=== PATIENT | female | born 1955 | race Caucasian/White ===

== ENCOUNTER 2018-05-19 14:51 | Inpatient (IN) | payer OTHER ==
[~2018-05-19] VITALS: Ht 165.1 cm; Wt 74.7 kg
--- NOTE | ~2018-05-19 | EKG ---
[place] [address] [facility] [place] [address] ELECTROCARDIOGRAM REPORT Name: DARÍO CABAN Room #: 170-5 ADM IN M.R.#: [id number] Admission: 05/19/18 Attend Phys: Ayanna Brunson Discharge: Date of : 57 Report #: [id number] THIS REPORT FOR: //name// [facility] ED Test Date: 2018-05-19 Test Time: 15:49:49 Pat Name: DARÍO CBAAN Department: Room: Gender: F Cyber Security Consultant: MRAY KAY : 1955 Requested By: Cecy Clarke Order Number: [id number] MD: Rosalino Allen Measurements Intervals [place] Rate: 74 P: 64 LA: 152 QRS: 59 QRSD: 91 T: 57 QT: 399 QTc: 443 Interpretive Statements Sinus rhythm No significant abnormality No previous ECG available for comparison Electronically Signed On 05-19-2018 17:10:35 CDT by Rosalino Allen [email or web address] <ELECTRONICALLY SIGNED> By: Rosalino Allen MD, [facility] 05/19/18 1710 1549 1549 Rosalino Allen MD, FACC /EPI
--- NOTE | ~2018-05-19 | O ---
[address] [address] OPERATIVE REPORT Name: DARÍO CABAN Room #: 421-P ADM IN M.R.#: [id number] Admission: 05/19/18 Attend Phys: Ayanna Brunson Discharge: Date of : 57 Report #: [id number] THIS REPORT FOR: //name// CC: Jose Gamanne Karli DATE OF SERVICE: 05/19/2018 SERVICE: Orthopedics. FACILITY: [facility]. SURGEON: Cesar Meza MD CENTER CUSTOMER SERVICE ASSOCIATE: Kay Rogers NP INDICATION: Leg manipulation and assistance with the implantation and reduction of the hip fracture. PREOPERATIVE DIAGNOSIS: Displaced right femoral neck fracture. POSTOPERATIVE DIAGNOSES: 1. Displaced right femoral neck fracture 2. Right greater trochanteric hip fracture. PROCEDURE: 1. Right hip hemiarthroplasty. 2. Open reduction and internal fixation of right hip greater trochanter fracture. ANESTHESIA: General. COMPLICATIONS: None. DRAINS: None. SPECIMENS: Femoral head, which was discarded. ESTIMATED BLOOD LOSS: 200 mL. FINDINGS: Displaced femoral neck fracture, treated with [employer] Synergy size 11 stem with 46 mm +0 neck with standard offset stem. HISTORY: The patient is a 63-year-old female with multiple medical problems, who sustained a fall while transferring, landing on her right side. She has a history of previous cerebrovascular accident in 2017 which left her hemiparetic [address] [address] OPERATIVE REPORT Name: DARÍO CABAN Room #: 421-P ADM IN .R.#: [id number] Admission: 05/19/18 Attend Phys: Ayanna Brunson Discharge: Date of : 57 Report #: [id number] on the right side. She is therefore a non-ambulator and primarily transfers only. She had a complex proximal femur fracture involving the femoral neck, which was displaced and therefore, she is indicated for a hemiarthroplasty. X-rays demonstrated atypical fracture pattern, which was later confirmed intraoperatively to be a coronal fracture within the femoral neck with an extension into the greater trochanter. There was subcapital component to it as well such that intertrochanteric fracture treatment would not have been appropriate. She is indicated for surgery after she was admitted to hospital. Risks, benefits, alternatives, and indications for surgery were discussed in great detail with her who is the durable power of family law attorney and his questions were answered. He understood that there was significant risk of mortality or morbidity and gave full informed consent. Risks include but not limited to pain, bleeding, infection, injury to nerves or blood vessels, need for further surgery and stability of the prosthesis, periprosthetic fracture and complications related to anesthesia including . PROCEDURE IN DETAIL: After right lower extremity was correctly identified as the operative extremity, the patient was taken to the operating room where general endotracheal anesthesia was induced without complication. She was turned into lateral decubitus position with right side up, left side down. Prophylactic antibiotics were administered. Right leg was prepped and draped in standard sterile fashion. Time-out procedure was performed. Standard posterior approach was made to the right hip. Dissection was taken down through the fascia and the gluteus splitting approach to the bursa was removed. The piriformis was identified and was tagged and reflected. The capsule was incised and then reflected and preserved for later repair. The fracture was evaluated. The posterior aspect of the femoral neck was still attached to the femoral head whereas the anterior aspect of the femoral neck was attached to the calcar and the proximal femur and fracture was subcapital in this position. The saw was used to cut the neck, posterior cortex and then the head was removed. There was comminution of the posterior femur proximally as well which again extended into the trochanter and there was good soft tissue envelope around the trochanter, but there was a fracture nonetheless. The residual femoral neck was then excised allowing access to the proximal femur. The proximal femur was then prepared and sequentially reamed and broached to a size 11 trial. A cross-table intraoperative x-ray was then taken to confirm that. The implant was in good position and the length was appropriate. I then trialed the 46 mm head with +0 liner with a standard offset neck and the hip was stable in all positions. The leg length appeared appropriate. I did trial a high offset neck just to assess the soft tissue tensioning since she is a non-ambulator and has had significant atrophy of her right lower extremity muscle but this put her under excessive tension and therefore I retrialed with the standard offset stem and this was most appropriate depth. The trial was [address] [address] OPERATIVE REPORT Name: DUYENLINDADARÍO Room #: 421-P [facility] IN M.R.#: [id number] Admission: 05/19/18 Attend Phys: Ayanna Brunson Discharge: Date of : 57 Report #: [id number] then removed and the proximal femur was repaired in a typical fashion and then the cement restrictor was placed. The proximal femur was dried and final implant was cemented into plate and the cement was allowed to cure with the appropriate version. The excess cement was removed. After the cement had cured, the trial head was placed again and confirmed a 46 mm head with a +0 liner. I then cleaned the trunnion and placed the final implant. The hip was reduced. It was found to be stable in the position of sleep at the 90/90 position and extension external rotation. The leg lengths were appropriate. The shuck test was negative. At this point, the deep layer was thoroughly irrigated and a gram of vancomycin powder was placed around the implant and then I assessed the greater trochanter. The soft tissue envelope with intact and with her significant medical comorbidities, I did not want to perform additional invasive soft tissue stripping and blood loss and exposure to an extended duration procedure and I felt that cerclage treatment of the greater trochanter would be sufficient. Therefore, utilizing a #1 Ethibond and #5 FiberWire, the smaller posterior segment with cerclage to the stable anterior portion providing good fixation, incorporating the repair into the capsular closure as well for the trochanter with 1 unit. Total of 2 sutures were used to repair the capsule for the trochanter fixation with cerclage treatment and additional #5 FiberWire was used with Fulton stitch through the capsule and the abductor to repair the piriformis. Deep fascia was closed with 0 Vicryl sutures and the wound was irrigated. The skin was closed with 2-0 Vicryl and skin medina. Sterile dressing applied. The patient was awakened from anesthesia and taken to recovery room in stable condition with an abduction pillow brace. There were no complications and all counts were recorded as correct. <ELECTRONICALLY SIGNED> By: Cesar Meza MD 05/21/18 1244 1755 1917 Cesar Meza MD /domenico
--- NOTE | ~2018-05-19 | HC ---
[facility] [place] [address] CONSULTATION Name: DARÍO CABAN Room #: 461-P [facility] IN M.R.#: [id number] Admission: 05/19/18 Attend Phys: Ayanna Brunson Discharge: 06/02/18 Date of : 57 Report #: [id number] THIS REPORT FOR: //name// CC: Jose Rothe Karli REASON FOR CONSULTATION: Right hip fracture. HISTORY OF PRESENT ILLNESS: The patient is a 63-year-old female who was transferring herself today due to her right-sided hemiparesis and fell. She and her family report having a stroke approximately 5 years ago, which resulted in hemiparesis on her right side. She had a second stroke in 01/2018, which they report resulted in lung dysfunction. She is currently a patient at [facility]. She is on approximately 5-6 liters of oxygen per nasal cannula. REVIEW OF SYSTEMS: MUSCULOSKELETAL: She complains only of right-sided hip pain. NEUROLOGIC: Denies new changes in her right lower extremity. She reports numbness and loss of use of her right upper and right lower extremities after stroke. PAST MEDICAL HISTORY: Significant for CVA, seizure disorder, alcoholic cirrhosis, alcoholic hepatic encephalopathy, COPD, apparently orthostatic hypotension. ALLERGIES: SHE REPORTS ACETAMINOPHEN. SOCIAL HISTORY: She is , but does not live at home due to her recent stroke. Quit smoking cigarettes a year ago. Alcohol use is none currently. Has a history of alcoholism. PAST SURGICAL HISTORY: Unknown. LABORATORY STUDIES: White blood cell count 7.9, hemoglobin 14.8, hematocrit 41.5, platelet count 104. INR is 1.1. Chemistry shows a low sodium at 133, creatinine is elevated at 1.2. Total bilirubin is elevated at 2. PHYSICAL EXAMINATION: GENERAL: The patient is awake, alert. She converses well. She otherwise interacts appropriately. Her arrives at her bedside midway through my examination. MUSCULOSKELETAL: Examination of her right upper extremity: She has contracted fingers into her palm. I am able to open them; however, not fully. She has no absent sensation to the tips of her fingers. She does not have any significant muscle atrophy. She is nontender to palpation throughout her entire right upper extremity. Right lower extremity exam: There is no atrophy. She has brisk capillary refill in both the right and left upper extremities. The skin is [address] [address] CONSULTATION Name: DARÍO CABAN Room #: 461-P [facility] IN M.R.#: [id number] Admission: 05/19/18 Attend Phys: Ayanna Brunson Discharge: 06/02/18 Date of : 57 Report #: [id number] clean, dry and intact in both right upper and right lower extremities. She does not have any tenderness to palpation throughout the right thigh, knee, leg, ankle or foot. There is a significant pain with attempted range of motion of her right hip. No pain with range of motion of her right knee, ankle or foot. Examination of the left lower extremity: Sensation is intact to light touch throughout. She has brisk capillary refill. EHL, FHL, dorsiflexion and plantar flexion are intact. RADIOGRAPHS: AP pelvis and AP and lateral of the right hip show displaced right femoral neck fracture. IMPRESSION AND PLAN: Right displaced femoral neck fracture in a fairly ill patient with right hemiparesis. She does transfer. I discussed the diagnosis as well as treatment options and in order to allow her fracture to heal and for transferring, recommend surgical fixation most likely with a hemiarthroplasty. I have discussed this patient with my partner, Dr. Cesar Meza, and pending medical clearance. We will plan for surgery tomorrow. Questions were encouraged and answered to best of my ability. Dr. Meza will also discuss the procedure with the patient tomorrow. I did not discuss a definitive treatment with this patient in great detail as I wanted to speak with Dr. Meza first. <ELECTRONICALLY SIGNED> By: Svitlana Eisenberg MD 07/10/18 1054 1717 1827 Svitlana Eisenberg MD /nt
--- NOTE | ~2018-05-19 | 2DMMODE ---
[facility] [address] [place] [address] 2 D/M-MODE ECHOCARDIOGRAM Name: DARÍO CABAN Room #: 349-I ADM IN [facility].#: [id number] Admission: 05/19/18 Attend Phys: Jose Layton Discharge: Date of : 57 Date of Service: 05/22/18 1013 Report #: [id number] THIS REPORT FOR: //name// APPROVED REPORT Study performed: 05/22/2018 08:06:09 EXAM: Comprehensive 2D, Doppler, and color-flow Echocardiogram Patient Location: In-Patient Room #: 349 Status: routine BSA: 1.75 HR: 118 bpm BP: 133/51 mmHg Other Information Study Quality: Technically Limited Technically limited study due to inability to position patient due to broken hip, high heart rate. Indications COPD Hx CVA 2D Dimensions RVDd: 29.68 mm LVEF(%): 68.89 (>50%) IVSd: 9.84 (7-11mm) LVOT Diam: 20.31 (18-24mm) LVDd: 40.96 mm PWd: 10.36 (7-11mm) Ascending Ao: 28.83 (22-36mm) LVDs: 25.32 (25-40mm) Aortic Root: 27.68 mm IVC: 11.00 mm Bahena's LVEF: 68.89 % Volumes Left Atrial Volume (Systole) Single Plane 4CH: 52.68 mL Single Plane 2CH: 45.02 mL LA ESV Index: 31.00 mL/m2 Aortic Valve AoV Peak Erik.: 1.73 m/s AO Peak Gr.: 12.04 mmHg LVOT Max P.85 mmHg LVOT Max V: 1.31 m/s REED Vmax: 2.44 cm2 Mitral Valve [facility] [place] [address] 2 D/M-MODE ECHOCARDIOGRAM Name: DARÍO CABAN Room #: 349-I ADM IN M.R.#: [id number] Admission: 05/19/18 Attend Phys: Jose Layton Discharge: Date of : 57 Date of Service: 05/22/18 1013 Report #: [id number] E/A Ratio: 0.9 MV Decel. Time: 190.10 ms MV E Max Erik.: 0.69 m/s MV A Erik.: 0.77 m/s MV PHT: 55.13 ms IVRT: 62.28 ms Pulmonary Valve PV Peak Erik.: 1.46 m/s PV Peak Gr.: 8.50 mmHg Tricuspid Valve RAP Estimate: 5.00 mmHg Left Ventricle The left ventricle is normal size. There is normal left ventricular wall thickness. The left ventricular systolic function is normal. The left ventricular ejection fraction is within the normal range. LVEF is 65%. This study is not technically sufficient to allow evaluation of the LV diastolic function. Right Ventricle The right ventricle is normal size. The right ventricular systolic function is normal. Atria The left atrium size is normal. The right atrium size is normal. Aortic Valve The aortic valve is normal in structure. No aortic regurgitation is present. There is no aortic valvular stenosis. Mitral Valve The mitral valve is normal in structure. Trace mitral regurgitation. No evidence of mitral valve stenosis. Tricuspid Valve The tricuspid valve is normal in structure. There is no tricuspid valve regurgitation noted. Unable to assess PA pressure. Pulmonic Valve Pulmonic valve is not well visualized. Great Vessels The aortic root is normal in size. IVC is normal in size and collapses >50% with inspiration. [address] [address] 2 D/M-MODE ECHOCARDIOGRAM Name: DARÍO CABAN Room #: 349-I ADM IN .R.#: [id number] Admission: 05/19/18 Attend Phys: Jose Layton Discharge: Date of : 57 Date of Service: 05/22/18 1013 Report #: [id number] Pericardium There is no pericardial effusion. <Conclusion> The left ventricle is normal size. There is normal left ventricular wall thickness. The left ventricular systolic function is normal. The right ventricle is normal size. The left atrium size is normal. The right atrium size is normal. The aortic valve is normal in structure. Trace mitral regurgitation. There is no tricuspid valve regurgitation noted. Unable to assess PA pressure. <ELECTRONICALLY SIGNED> By: Larry Flores MD 05/22/18 1013 1013 1013 Larry Flores MD /INF
--- NOTE | ~2018-05-19 | D ---
[facility] [place] [address] DISCHARGE SUMMARY Name: DARÍO CABAN Room #: 461-P [facility] IN M.R.#: [id number] Admission: 05/19/18 Attend Phys: Ayanna Brunson Discharge: 06/02/18 Date of : 57 Report #: [id number] THIS REPORT FOR: //name// CC: Jose Calvillo FINAL DIAGNOSES: 1. Right hip fracture. 2. Hepatic encephalopathy. 3. Acute hypoxic respiratory failure. 4. Fever. 5. Aspiration pneumonia. 6. Hypernatremia. 7. Hypokalemia. 8. Cerebrovascular disease. 9. Chronic right hemiparesis. 10. Dysphagia. 11. Anemia of chronic disease. 12. Hyperglycemia. 13. Severe protein-calorie malnutrition. 14. Medication-induced diarrhea. PROCEDURES: Right hip fracture repair. HOSPITAL COURSE: The patient was admitted from her long-term care unit with a right hip fracture. She underwent surgical repair. Postoperatively, she had complications including fever, hypoxic respiratory failure, aspiration pneumonia, hypokalemia, hypernatremia and hepatic encephalopathy. Multiple consultants followed her case and she was treated briefly in the ICU and then medically stabilized. Hyperglycemia developed after the use of steroids for her COPD. Gradually, her respiratory status improved and she was transferred out to the floor. She required additional free water supplementation for hypernatremia, potassium supplement due to diarrhea from lactulose and adjustment of her tube feeding to a diabetic agent and discontinuation of steroids. She had a bleeding episode after receiving Xarelto for DVT prophylaxis, and therefore, that was discontinued. PHYSICAL EXAMINATION: GENERAL: On the day of discharge, she was awake and alert, resting in bed, in no distress. VITAL SIGNS: Temperature 36.4, pulse 90, respirations 16, blood pressure 95/58 and O2 sat 100% on 2-3 liters nasal cannula. LUNGS: Clear. HEART: Regular. ABDOMEN: Soft, normoactive bowel sounds. EXTREMITIES: No edema. [facility] [address] [place] [address] DISCHARGE SUMMARY Name: DARÍO CABAN Room #: [address] [place] [address] IN .R.#: [id number] Admission: 05/19/18 Attend Phys: Ayanna Brunson Discharge: 06/02/18 Date of : 57 Report #: [id number] LABORATORY DATA: Hemoglobin was 11, white count was 10. Glucose 199, potassium 5.2 and creatinine 0.8. DISPOSITION: She will be transferred to [facility] under the care of Dr. Villa. I have signed her discharge medications orders. She will have speech, physical and occupational therapy. She had an oral diet previously and once cleared by speech, this may resume. <ELECTRONICALLY SIGNED> By: Frankie Silva MD 06/04/18 1159 1059 1124 Frankie Silva MD /nt
--- NOTE | ~2018-05-19 | H ---
[facility] [place] [address] HISTORY AND PHYSICAL Name: DARÍO CABAN Room #: 421-P ADM IN M.R.#: [id number] Admission: 05/19/18 Attend Phys: Ayanna Brunson Discharge: Date of : 57 Report #: [id number] THIS REPORT FOR: //name// CC: Jose Gamanne Karli DATE OF SERVICE: 05/19/2018 CHIEF COMPLAINT: Right hip pain. HISTORY OF PRESENT ILLNESS: The patient is a 63-year-old female, transferred from [facility] to the ER due to hip pain. She suffered a stroke in 02/2017, has chronic right hemiparesis. According to the reports, it sounds like she was trying to transfer when she slipped and landed on to the right side. She complained of pain and was unable to stand. X-rays have confirmed a right hip fracture. PAST MEDICAL HISTORY: CVA 02/2017. Chronic dysphagia with PEG tube, chronic right hemiparesis, seizure disorder, alcoholic cirrhosis with a history of hepatic encephalopathy, COPD, orthostatic hypotension. PAST SURGICAL HISTORY: PEG tube. FAMILY HISTORY: Noncontributory. SOCIAL HISTORY: No current alcohol or tobacco use, but there is prior use of both. ALLERGIES: None. MEDICATIONS: Rifaximin, midodrine, Aldactone, Keppra, lactulose, Lasix, budesonide inhaled solution, Pepcid and potassium. REVIEW OF SYSTEMS: She denies any headache, chest pain, shortness of breath, abdominal pain, nausea, vomiting, diarrhea, constipation, dysuria, syncope. OBJECTIVE: VITAL SIGNS: Temperature 36.9, pulse 99, respirations 12. Blood pressure 91/54, ranging 102/43. O2 sat 93% on 2 liters. GENERAL: She is awake and alert, lying in bed, in no distress. HEAD AND NECK: Unremarkable. LUNGS: Clear. HEART: Regular. ABDOMEN: Soft, normoactive bowel sounds. EXTREMITIES: No edema. NEUROLOGIC: Speech is relatively clear. She has right hemiparesis. Left-sided [facility] [address] [place] [address] HISTORY AND PHYSICAL Name: DARÍO CABAN Room #: 421-P [facility] IN ..#: [id number] Admission: 05/19/18 Attend Phys: Ayanna Brunson Discharge: Date of : 57 Report #: [id number] strength about 01/06. LABORATORY DATA: Reviewed. Urine culture is pending. ASSESSMENT: 1. Right proximal femur fracture. 2. Urinary tract infection. 3. Cerebrovascular disease. 4. Chronic right hemiparesis from old stroke. 5. Chronic dysphagia with PEG tube. 6. Seizure disorder. 7. Chronic obstructive pulmonary disease. 8. 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 9. Hepatic encephalopathy. PLAN: Continue medications and transfer. She is medically cleared to proceed with surgical stabilization of her hip today. I will add Diflucan, waiting on the urine culture. <ELECTRONICALLY SIGNED> By: Frankie Silva MD 05/20/18 1214 0911 0942 Frankie Silva MD /nt
--- NOTE | ~2018-05-19 | HC ---
[facility] [place] [address] CONSULTATION Name: DARÍO CABAN Room #: 247-P ADM IN M.R.#: [id number] Admission: 05/19/18 Attend Phys: Ayanna Brunson Discharge: Date of : 57 Report #: [id number] THIS REPORT FOR: //name// CC: Jose Gamanne Karli DATE OF SERVICE: 05/22/2018 REASON FOR CONSULTATION: Evaluation concerning sepsis. HISTORY OF PRESENT ILLNESS: The patient is a 63-year-old with underlying history of stroke with right hemiparesis in the setting of cirrhosis and seizure disorder. She was residing at [facility] when she slipped during a transfer and fractured her right femoral neck and greater trochanter. On 05/19/2018, the day of admission, she underwent ORIF of the hip. Postoperatively, she was hypoxic. She does have an underlying history of COPD. Her hypoxia persisted up to 8 liters of oxygen per nasal cannula. She has remained encephalopathic. She was seen in consultation by pulmonary medicine yesterday evening. With a normal chest x-ray, CT was ordered with no evidence of pulmonary embolism. No other intrathoracic changes noted on the imaging studies, which were reviewed. This morning, she spiked temperature up to 102 degrees. She has become hypotensive with blood pressure systolic in the 80s. She has had decreased urine output. She remains on 4 liters of oxygen per nasal cannula. She was unable to give me any history. Nursing notes no significant change in her mental status. No documented seizure. No gross aspiration noted. No nausea, vomiting or diarrhea. She has remained on lactulose and rifaximin. Stools have been loose while on this program, which is unchanged. She has had no increased output from her right hip incisional VAC. She has had no recent narcotic use. No report of abdominal pain, although the patient was unable to give details. She does have a PEG tube for her feedings. REVIEW OF SYSTEMS: The patient was unable to give any details. A 10-point review was discussed with nursing staff at the bedside. No other issues were noted. She does have a left external jugular IV in place. She had bleeding from her right dorsal hand. She has indwelling Tubbs catheter. There has been no rectal bleeding noted. ALLERGIES: None known. MEDICATIONS: As noted on her MAR including fluconazole and ceftriaxone given up until today where it was changed to vancomycin and Zosyn. PAST MEDICAL HISTORY: COPD, stroke with right hemiparesis in February 2018, cirrhosis, seizure disorder, and [place] [address] CONSULTATION Name: DARÍO CABAN Room #: [facility] IN M.R.#: [id number] Admission: 05/19/18 Attend Phys: Ayanna Brunson Discharge: Date of : 57 Report #: [id number] FAMILY HISTORY: Unavailable due to the patient's neurologic status. SOCIAL HISTORY: She is a past smoker, previous alcohol use. No other details available. PHYSICAL EXAMINATION: VITAL SIGNS: Temperature is 102 degrees, pulse is 105, respiratory rate in the 20s, and blood pressure was 89/41. GENERAL: The patient was arousable, but noncommunicative, otherwise. She appeared a bit anxious. EYES: Unremarkable. MOUTH: No thrush or oral lesions. NECK: Supple. LUNGS: Clear anteriorly and posteriorly with no consolidation. No rub. CARDIOVASCULAR: Heart was tachycardic, regular. No appreciable murmur, gallop, or rub. ABDOMEN: Firm with unremarkable PEG tube in the left upper quadrant. She had a midline abdominal incision with scarring. No palpable mass or hepatosplenomegaly identified. Did not appear to have ascites. GENITOURINARY: External genitalia unremarkable with indwelling Tubbs catheter. Perianal examination unremarkable with no bleeding. EXTREMITIES: Right hip incision with incisional VAC in place. She did have surrounding ecchymosis. Extremities otherwise unremarkable. NEUROLOGIC: Noted right hemiparesis. LABORATORY STUDIES: Initial urinalysis had many wbc's, bacteria. Urine culture is pending from the . Repeat urinalysis today was unremarkable. Hemoglobin 10, down to 9.5 this morning; WBC 8.8, platelet count is 84,000. Sodium 137, potassium 3.7, creatinine 1.2. AST 40, ALT 30, alkaline phosphatase 122, bilirubin 1.2, albumin at 2.4, lactate 1.7, ammonia of 57. On 4 liters of oxygen per nasal cannula, she had a pO2 of 38, pCO2 of 21, pH 7.5, bicarb of 18, question whether this was a venous stick. Blood cultures are pending. CT scan of the chest was unremarkable. Ultrasound of lower extremity negative for DVT. Chest x-ray clear. IMPRESSION: A 63-year-old with previous stroke, underlying cirrhosis, chronic obstructive pulmonary disease and seizure disorder with recent right hip fracture, now postoperative day #3 from open reduction and internal fixation. Now with postoperative fever and sepsis with shock. Source of infection is not yet clear. We would consider urinary tract, although repeat urinalysis was unremarkable. Surgical site is other consideration. Intra-abdominal source with colitis or spontaneous bacterial peritonitis also possible. She does not appear to have pulmonary embolus or pneumonia. Doubt central nervous system infection. She has peripheral IVs in place, making bloodstream infection less likely. The patient has been hospitalized or institutionalized for several [facility] [address] [place] [address] CONSULTATION Name: DARÍO CABAN Room #: 247-P ADM IN M.R.#: [id number] Admission: 05/19/18 Attend Phys: Ayanna Brunson Discharge: Date of : 57 Report #: [id number] months, making healthcare-associated organisms a concern. RECOMMENDATION: Transfer to the ICU for full sepsis workup and support. Give IV fluid bolus now, place central venous access, continue fluids and vasopressors as needed to maintain adequate perfusion. Continue with broad antibiotic coverage including vancomycin and Zosyn. Obtain cultures of blood and urine. CT imaging of her abdomen and pelvis. We will discuss further with pulmonary medicine. Repeat ABG. <ELECTRONICALLY SIGNED> By: Rickey Villa MD 05/23/18 [id number] Rickey Villa MD /nt
[2018-05-19 14:52] VITALS: BP 107/62
[2018-05-19 16:01] LABS: HEMATOCRIT 41.5 % (37.0-47.0); HEMOGLOBIN 14.8 gm/dL (12.0-15.0); MCH 35.6 pg (26.0-34.0); MCHC 35.6 g/dL (28.0-37.0); MCV 100.1 fL (80.0-100.0); PLATELET COUNT 104 thou/uL (150-400); RBC 4.15 mil/uL (4.20-5.00); RDW 14.6 % (10.5-14.5); WBC 7.9 thou/uL (4.0-11.0)
[2018-05-19 16:09] LABS: CALCIUM 9.7 mg/dL (8.5-10.1); CREATININE 1.2 mg/dL (0.6-1.0); POTASSIUM 4.1 mmol/L (3.5-5.1)
[2018-05-19 16:13] LABS: INR 1.1; PROTIME 11.2 Seconds (9.3-11.4)
[2018-05-19 16:20] LABS: ALBUMIN 3.6 g/dL (3.4-5.0); DIRECT BILIRUBIN 0.6 mg/dL (<0.1-0.3); TOTAL PROTEIN 8.2 g/dL (6.4-8.2)
[2018-05-19 16:26] LABS: ABSOLUTE NEUTROPHILS 5.9 thou/uL (1.4-8.2)
[2018-05-19 17:14] LABS: URINE BILIRUBIN NEGATIVE (Negative); URINE BLOOD NEGATIVE (Negative); URINE CLARITY CLEAR; URINE COLOR YELLOW; URINE GLUCOSE-RANDOM* NEGATIVE (Negative); URINE KETONES NEGATIVE (Negative); URINE LEUKOCYTES 1+ (Negative); URINE NITRITE POSITIVE (Negative); URINE PROTEIN (DIPSTICK) NEGATIVE (Negative); URINE UROBILINOGEN 0.2 E.U./dl (0.2-1.0)
[2018-05-19 17:22] LABS: CASTS None Seen /LPF (None Seen); SQUAMOUS 0-3 Few /LPF (0-3); URINE WBC >25 Many /HPF (0-5)
[2018-05-19 17:23] LABS: BACTERIA >30 Many /HPF (None Seen); CRYSTALS None Seen /LPF (None Seen); URINE RBC None Seen /HPF (0-2); WBC CLUMPS Few (None Seen); YEAST Present (None Seen)
[2018-05-19 17:28] VITALS: BP 102/61
[2018-05-19 18:33] VITALS: BP 101/64
[2018-05-19 18:49] VITALS: BP 115/60
[2018-05-19 19:30] VITALS: BP 99/48
[2018-05-20] VITALS (13 sets, daily range): BP systolic 82–104; BP diastolic 43–57
[2018-05-20] MEDS ORDERED: ALDACTONE50 MG PO (02:44)
[2018-05-20] MEDS ORDERED: POTASSIUM20 PO (02:44)
[2018-05-20] MEDS ORDERED: PULMICORT0.5 MG/22 INH (02:45)
[2018-05-20] MEDS ORDERED: PEPCID20 MG PO (02:47)
[2018-05-20] MEDS ORDERED: LASIX 20 MG TAB20 MG PO (02:47)
[2018-05-20] MEDS ORDERED: KEPPRA 500 MG500 M1 PO (02:48)
[2018-05-20] MEDS ORDERED: XIFAXAN550 M1 PO (02:49)
[2018-05-20] MEDS ORDERED: MIDODRINE HCL 55 M1 PO (02:50)
[2018-05-20] MEDS ORDERED: LACTULOSE10 GM/152 PO (02:51)
[2018-05-20] MEDS ORDERED: IBUPROFEN 600600 M1 PO (02:53)
[2018-05-21] VITALS (7 sets, daily range): BP systolic 91–112; BP diastolic 38–50
[2018-05-21 05:55] LABS: HEMATOCRIT 31.2 % (37.0-47.0); MCH 35.7 pg (26.0-34.0); MCHC 35.6 g/dL (28.0-37.0); MCV 100.5 fL (80.0-100.0); RBC 3.1 mil/uL (4.20-5.00); RDW 14.8 % (10.5-14.5); WBC 7.3 thou/uL (4.0-11.0)
[2018-05-21 06:03] LABS: HEMOGLOBIN 11.1 gm/dL (12.0-15.0)
[2018-05-21 06:08] LABS: CALCIUM 7.9 mg/dL (8.5-10.1); CREATININE 1.1 mg/dL (0.6-1.0); POTASSIUM 3.9 mmol/L (3.5-5.1)
[2018-05-21 12:23] LABS: BE(vivo) -0.8 mmol/L (-2 to +3); HCO3 20.7 mmol/L (22.0-26.0); PCO2 26.1 mmHg (35.0-45.0); PO2 49.1 mmHg (80.0-100.0); pH 7.517 (7.360-7.450); sO2 89.2 % (92.0-98.0)
[2018-05-21 16:12] LABS: BE(vivo) -2.9 mmol/L (-2 to +3); HCO3 17.9 mmol/L (22.0-26.0); pH 7.537 (7.360-7.450); sO2 80.7 % (92.0-98.0)
[2018-05-21 16:13] LABS: PCO2 21.6 mmHg (35.0-45.0); PO2 38.1 mmHg (80.0-100.0)
[2018-05-22] VITALS (16 sets, daily range): BP systolic 80–138; BP diastolic 33–102
[2018-05-22 05:47] LABS: HEMATOCRIT 28.5 % (37.0-47.0); HEMOGLOBIN 10.1 gm/dL (12.0-15.0); MCH 35.7 pg (26.0-34.0); MCHC 35.5 g/dL (28.0-37.0); MCV 100.4 fL (80.0-100.0); RBC 2.84 mil/uL (4.20-5.00); RDW 14.8 % (10.5-14.5); WBC 8.8 thou/uL (4.0-11.0)
[2018-05-22 06:05] LABS: ALBUMIN 2.4 g/dL (3.4-5.0); CREATININE 1.2 mg/dL (0.6-1.0); POTASSIUM 3.7 mmol/L (3.5-5.1); TOTAL BILIRUBIN 1.2 mg/dL (<0.1-1.0); TOTAL PROTEIN 5.8 g/dL (6.4-8.2)
[2018-05-22 09:59] LABS: URINE BILIRUBIN NEGATIVE (Negative); URINE BLOOD NEGATIVE (Negative); URINE CLARITY CLEAR; URINE COLOR YELLOW; URINE GLUCOSE-RANDOM* NEGATIVE (Negative); URINE KETONES NEGATIVE (Negative); URINE LEUKOCYTES-REFLEX NEGATIVE (Negative); URINE NITRITE-REFLEX NEGATIVE (Negative); URINE PROTEIN (DIPSTICK) NEGATIVE (Negative); URINE SPECIFIC GRAVITY 1.025 (1.005-1.035); URINE UROBILINOGEN 0.2 E.U./dl (0.2-1.0)
[2018-05-22 11:42] LABS: HEMATOCRIT 26.9 % (37.0-47.0); HEMOGLOBIN 9.5 gm/dL (12.0-15.0)
[2018-05-22 12:43] LABS: BE(vivo) -1.9 mmol/L (-2 to +3); HCO3 21.3 mmol/L (22.0-26.0); PCO2 30.2 mmHg (35.0-45.0); PO2 68.9 mmHg (80.0-100.0); pH 7.466 (7.360-7.450)
[2018-05-23] VITALS (13 sets, daily range): BP systolic 86–1115; BP diastolic 47–71
[2018-05-23 05:27] LABS: ABSOLUTE NEUTROPHILS 5.1 thou/uL (1.4-8.2); BASOPHILS 0.6 % (0.0-2.0); EOSINOPHILS 4.7 % (0.0-3.0); HEMATOCRIT 24.4 % (37.0-47.0); HEMOGLOBIN 8.6 gm/dL (12.0-15.0); MCH 35.5 pg (26.0-34.0); MCHC 35.1 g/dL (28.0-37.0); MCV 101.1 fL (80.0-100.0); PLATELET COUNT 78 thou/uL (150-400); POLYS 75.7 % (36.0-66.0); RBC 2.41 mil/uL (4.20-5.00); RDW 14.9 % (10.5-14.5); WBC 6.7 thou/uL (4.0-11.0)
[2018-05-23 05:43] LABS: ALBUMIN 2.1 g/dL (3.4-5.0); POTASSIUM 3.3 mmol/L (3.5-5.1); TOTAL BILIRUBIN 1.5 mg/dL (<0.1-1.0); TOTAL PROTEIN 5.1 g/dL (6.4-8.2)
[2018-05-24] VITALS (21 sets, daily range): BP systolic 73–138; BP diastolic 44–70
[2018-05-24 03:08] LABS: HEMATOCRIT 25.4 % (37.0-47.0); HEMOGLOBIN 8.8 gm/dL (12.0-15.0); MCH 35.5 pg (26.0-34.0); MCHC 34.8 g/dL (28.0-37.0); MCV 102.2 fL (80.0-100.0); RBC 2.48 mil/uL (4.20-5.00); RDW 14.7 % (10.5-14.5)
[2018-05-24 03:11] LABS: CALCIUM 8.1 mg/dL (8.5-10.1); CREATININE 1.1 mg/dL (0.6-1.0); POTASSIUM 3.7 mmol/L (3.5-5.1)
[2018-05-24 03:17] LABS: ALBUMIN 2.2 g/dL (3.4-5.0); DIRECT BILIRUBIN 0.6 mg/dL (<0.1-0.3); TOTAL BILIRUBIN 1.4 mg/dL (<0.1-1.0); TOTAL PROTEIN 5.9 g/dL (6.4-8.2)
[2018-05-24 07:07] LABS: BE(vivo) -4.1 mmol/L (-2 to +3); HCO3 19.9 mmol/L (22.0-26.0); PO2 116.1 mmHg (80.0-100.0); pH 7.411 (7.360-7.450); sO2 98.3 % (92.0-98.0)
[2018-05-24 11:29] LABS: CALCIUM 8.3 mg/dL (8.5-10.1); CREATININE 1.1 mg/dL (0.6-1.0); POTASSIUM 3.8 mmol/L (3.5-5.1)
[2018-05-24 11:37] LABS: HEMATOCRIT 24.9 % (37.0-47.0); HEMOGLOBIN 8.8 gm/dL (12.0-15.0); MCH 35.8 pg (26.0-34.0); MCHC 35.3 g/dL (28.0-37.0); MCV 101.3 fL (80.0-100.0); RBC 2.46 mil/uL (4.20-5.00); RDW 14.5 % (10.5-14.5); WBC 7.6 thou/uL (4.0-11.0)
[2018-05-25] VITALS (23 sets, daily range): BP systolic 92–120; BP diastolic 48–65
[2018-05-25 05:04] LABS: CALCIUM 8.2 mg/dL (8.5-10.1); CREATININE 1.1 mg/dL (0.6-1.0); POTASSIUM 3.6 mmol/L (3.5-5.1)
[2018-05-25 05:28] LABS: HEMATOCRIT 23.6 % (37.0-47.0); HEMOGLOBIN 8.3 gm/dL (12.0-15.0); MCH 35.7 pg (26.0-34.0); MCHC 35.2 g/dL (28.0-37.0); MCV 101.3 fL (80.0-100.0); RBC 2.33 mil/uL (4.20-5.00); RDW 14.7 % (10.5-14.5); WBC 7.2 thou/uL (4.0-11.0)
[2018-05-25 12:06] LABS: HEMATOCRIT 23.6 % (37.0-47.0); HEMOGLOBIN 8.3 gm/dL (12.0-15.0); MCH 35.6 pg (26.0-34.0); MCV 101.6 fL (80.0-100.0); RBC 2.33 mil/uL (4.20-5.00); RDW 14.7 % (10.5-14.5); WBC 5.5 thou/uL (4.0-11.0)
[2018-05-25 12:22] LABS: ALBUMIN 2.4 g/dL (3.4-5.0); CALCIUM 8.4 mg/dL (8.5-10.1); CREATININE 1.1 mg/dL (0.6-1.0); POTASSIUM 3.6 mmol/L (3.5-5.1); TOTAL BILIRUBIN 1.2 mg/dL (<0.1-1.0); TOTAL PROTEIN 5.8 g/dL (6.4-8.2)
[2018-05-26] VITALS (24 sets, daily range): BP systolic 89–111; BP diastolic 47–72
[2018-05-26 04:18] LABS: CALCIUM 8.2 mg/dL (8.5-10.1); CREATININE 1.1 mg/dL (0.6-1.0); POTASSIUM 3.5 mmol/L (3.5-5.1)
[2018-05-26 05:08] LABS: HEMOGLOBIN 7.8 gm/dL (12.0-15.0); MCH 35.2 pg (26.0-34.0); MCHC 34.2 g/dL (28.0-37.0); MCV 103.1 fL (80.0-100.0); RBC 2.23 mil/uL (4.20-5.00); RDW 15.6 % (10.5-14.5)
[2018-05-26 05:23] LABS: BE(vivo) 0.4 mmol/L (-2 to +3); HCO3 24.2 mmol/L (22.0-26.0); PCO2 35.6 mmHg (35.0-45.0); PO2 84.7 mmHg (80.0-100.0); pH 7.451 (7.360-7.450); sO2 96.8 % (92.0-98.0)
[2018-05-27] VITALS (12 sets, daily range): BP systolic 94–117; BP diastolic 51–72
[2018-05-27 04:13] LABS: CALCIUM 8.7 mg/dL (8.5-10.1); CREATININE 0.9 mg/dL (0.6-1.0); POTASSIUM 3.3 mmol/L (3.5-5.1)
[2018-05-27 05:25] LABS: HEMOGLOBIN 8.6 gm/dL (12.0-15.0); MCH 35.6 pg (26.0-34.0); MCHC 34.3 g/dL (28.0-37.0); MCV 103.8 fL (80.0-100.0); RBC 2.41 mil/uL (4.20-5.00); RDW 15.4 % (10.5-14.5); WBC 4.8 thou/uL (4.0-11.0)
[2018-05-27 15:09] LABS: HEMATOCRIT 26.4 % (37.0-47.0); MCH 35.7 pg (26.0-34.0); MCHC 34.2 g/dL (28.0-37.0); MCV 104.2 fL (80.0-100.0); RBC 2.53 mil/uL (4.20-5.00); WBC 5.9 thou/uL (4.0-11.0)
[2018-05-27 15:18] LABS: CALCIUM 8.6 mg/dL (8.5-10.1); CREATININE 0.9 mg/dL (0.6-1.0); POTASSIUM 3.2 mmol/L (3.5-5.1)
[2018-05-28 04:00] VITALS: BP 99/53
[2018-05-28 04:26] LABS: HEMATOCRIT 25.6 % (37.0-47.0); HEMOGLOBIN 8.6 gm/dL (12.0-15.0); MCH 35.4 pg (26.0-34.0); MCHC 33.7 g/dL (28.0-37.0); MCV 105.2 fL (80.0-100.0); RBC 2.43 mil/uL (4.20-5.00); RDW 15.7 % (10.5-14.5); WBC 4.2 thou/uL (4.0-11.0)
[2018-05-28 04:28] LABS: CALCIUM 8.3 mg/dL (8.5-10.1); POTASSIUM 3.8 mmol/L (3.5-5.1)
[2018-05-28 08:08] VITALS: BP 103/57
[2018-05-28 15:40] VITALS: BP 114/55
[2018-05-28 20:59] VITALS: BP 123/50
[2018-05-29 06:06] LABS: CALCIUM 8.7 mg/dL (8.5-10.1); CREATININE 0.9 mg/dL (0.6-1.0); POTASSIUM 3.3 mmol/L (3.5-5.1)
[2018-05-29 06:14] VITALS: BP 119/51
[2018-05-29 07:30] VITALS: BP 110/61
[2018-05-29 10:43] LABS: HEMATOCRIT 24.7 % (37.0-47.0); MCH 35.2 pg (26.0-34.0); MCHC 32.2 g/dL (28.0-37.0); MCV 109.3 fL (80.0-100.0); RBC 2.26 mil/uL (4.20-5.00); RDW 16.7 % (10.5-14.5); WBC 5.7 thou/uL (4.0-11.0)
[2018-05-29 15:35] VITALS: BP 110/56
[2018-05-29 20:15] LABS: CALCIUM 8.1 mg/dL (8.5-10.1); CREATININE 0.8 mg/dL (0.6-1.0); POTASSIUM 3.7 mmol/L (3.5-5.1)
[2018-05-29 20:17] VITALS: BP 114/65
[2018-05-30 05:34] VITALS: BP 111/49
[2018-05-30 06:02] LABS: HEMOGLOBIN 8.8 gm/dL (12.0-15.0); MCH 35.4 pg (26.0-34.0); MCHC 33.7 g/dL (28.0-37.0); MCV 105.1 fL (80.0-100.0); RBC 2.47 mil/uL (4.20-5.00); RDW 15.8 % (10.5-14.5); WBC 6.3 thou/uL (4.0-11.0)
[2018-05-30 06:04] LABS: CALCIUM 8.2 mg/dL (8.5-10.1); CREATININE 0.8 mg/dL (0.6-1.0); POTASSIUM 3.8 mmol/L (3.5-5.1)
[2018-05-30 08:30] VITALS: BP 116/50
[2018-05-30 20:41] VITALS: BP 100/46
[2018-05-31 04:14] VITALS: BP 90/49
[2018-05-31 06:20] LABS: HEMATOCRIT 27.1 % (37.0-47.0); HEMOGLOBIN 9.4 gm/dL (12.0-15.0); MCH 35.1 pg (26.0-34.0); MCHC 34.7 g/dL (28.0-37.0); RBC 2.68 mil/uL (4.20-5.00); RDW 15.1 % (10.5-14.5); WBC 4.9 thou/uL (4.0-11.0)
[2018-05-31 06:33] LABS: CALCIUM 7.9 mg/dL (8.5-10.1); CREATININE 0.7 mg/dL (0.6-1.0); POTASSIUM 3.4 mmol/L (3.5-5.1)
[2018-05-31 08:23] VITALS: BP 85/44
[2018-05-31 16:19] VITALS: BP 96/50
[2018-05-31 20:38] VITALS: BP 98/53
[2018-06-01 05:09] VITALS: BP 92/51
[2018-06-01 07:50] VITALS: BP 82/40
[2018-06-01 09:43] LABS: HEMATOCRIT 28.8 % (37.0-47.0); HEMOGLOBIN 10.1 gm/dL (12.0-15.0); MCH 35.5 pg (26.0-34.0); MCHC 35.2 g/dL (28.0-37.0); MCV 101.1 fL (80.0-100.0); RBC 2.85 mil/uL (4.20-5.00); WBC 6.8 thou/uL (4.0-11.0)
[2018-06-01 09:52] LABS: CREATININE 0.8 mg/dL (0.6-1.0); POTASSIUM 4.4 mmol/L (3.5-5.1)
[2018-06-01 16:27] VITALS: BP 98/44
[2018-06-01 20:15] VITALS: BP 102/53
[2018-06-02 05:00] VITALS: BP 100/62
[2018-06-02 05:49] LABS: MCH 35.4 pg (26.0-34.0); MCHC 34.3 g/dL (28.0-37.0); MCV 103.3 fL (80.0-100.0); RBC 3.1 mil/uL (4.20-5.00); RDW 15.3 % (10.5-14.5); WBC 10.2 thou/uL (4.0-11.0)
[2018-06-02 05:57] LABS: CALCIUM 8.6 mg/dL (8.5-10.1); CREATININE 0.8 mg/dL (0.6-1.0); POTASSIUM 5.2 mmol/L (3.5-5.1)
[2018-06-02 07:46] VITALS: BP 95/58
[2018-06-02] MEDS ORDERED: IPRAT-ALBUT 0.5-3 ML INH (10:50)
[2018-06-02] MEDS ORDERED: KLOR-CON20 ME1 PER TUBE (10:51)
[2018-06-02] MEDS ORDERED: ACETAMINOP160 MG/5 M PER TUBE (10:51)
== END 2018-06-02 14:05 | DRG 469 ==
LOC: ER 14:51 → 4E 15:56 → ICU 15:56 → EROBS 15:56 → 3W 15:56 → 4E 18:24 → 3W 05-21 15:59 → ICU 05-22 11:50 → 4W 05-27 17:52
PROVIDERS: Emergency Medicine; Internal Medicine Geriatric Medicine; Internal Medicine Pulmonary Disease; Orthopaedic Surgery Sports Medicine; Specialist
PROC: 0SRR0J9 Replacement of Right Hip Joint, Femoral Surface with Synthetic Substitute, Cemented, Open Approach (ICD-10-PCS; principal; 2018-05-20)
PROC: 0QS604Z Reposition Right Upper Femur with Internal Fixation Device, Open Approach (ICD-10-PCS; principal; 2018-05-20)
PROC: 02HV33Z Insertion of Infusion Device into Superior Vena Cava, Percutaneous Approach (ICD-10-PCS; 2018-05-22)
DX: S72.011A Unspecified intracapsular fracture of right femur, initial encounter for closed fracture (principal); T81.12XA Postprocedural septic shock, initial encounter; J96.21 Acute and chronic respiratory failure with hypoxia; J69.0 Pneumonitis due to inhalation of food and vomit; A41.9 Sepsis, unspecified organism; E87.0 Hyperosmolality and hypernatremia; K52.1 Toxic gastroenteritis and colitis; J44.1 Chronic obstructive pulmonary disease with (acute) exacerbation; N39.0 Urinary tract infection, site not specified; I69.351 Hemiplegia and hemiparesis following cerebral infarction affecting right dominant side; E87.6 Hypokalemia; R73.9 Hyperglycemia, unspecified; Y92.230 Patient room in hospital as the place of occurrence of the external cause; T38.0X5A Adverse effect of glucocorticoids and synthetic analogues, initial encounter; T47.3X5A Adverse effect of saline and osmotic laxatives, initial encounter; K72.90 Hepatic failure, unspecified without coma; W05.0XXA Fall from non-moving wheelchair, initial encounter; G40.909 Epilepsy, unspecified, not intractable, without status epilepticus; K70.30 Alcoholic cirrhosis of liver without ascites; R79.89 Other specified abnormal findings of blood chemistry; F10.21 Alcohol dependence, in remission; R13.10 Dysphagia, unspecified; D63.8 Anemia in other chronic diseases classified elsewhere; S72.111A Displaced fracture of greater trochanter of right femur, initial encounter for closed fracture; B96.1 Klebsiella pneumoniae [K. pneumoniae] as the cause of diseases classified elsewhere; D69.59 Other secondary thrombocytopenia; Y93.89 Activity, other specified; Y92.098 Other place in other non-institutional residence as the place of occurrence of the external cause; Y99.8 Other external cause status; Z79.1 Long term (current) use of non-steroidal anti-inflammatories (NSAID); Z87.891 Personal history of nicotine dependence; Z88.8 Allergy status to other drugs, medicaments and biological substances; Z68.27 Body mass index [BMI] 27.0-27.9, adult; Z93.1 Gastrostomy status; Z79.899 Other long term (current) drug therapy
CPT/HCPCS: 10045; 10078; 10084; 10879; 27000; 50010; 50101; 50382; 50414; 50939; 51057; 51130; 51225; 51226; 51412; 51771; 53000; 53078; 56524; 56527; 56528; 56530; 57095; 57103; 57164; 62110; 62900; 70005